=== PATIENT | female | born 1955 | race Caucasian/White ===

== ENCOUNTER 2017-12-13 04:56 | Day surgery (SDC) | payer OTHER ==
[~2017-12-13 04:56] MED LIST: ATACAND16 MG; CIPRO500 MG PO; COZAAR25 MG PO; DICLOFENAC POTA50 MG PO; ZOCOR5 MG PO
[2017-12-21] MEDS ORDERED: ZYNCOF 20-400120 ML PO (01:42)
[2017-12-21] MEDS ORDERED: ALBUTEROL2.5 MG/3 M IH (01:42)
== END 2017-12-13 11:05 | disposition home or self-care (01) ==
LOC: CIR.AMB 04:56
DX: N61.1 Abscess of the breast and nipple (principal)

== ENCOUNTER 2017-12-15 18:32 | Emergency (ER) | payer OTHER ==
[~2017-12-15] VITALS: Ht 167.6 cm; Wt 84.8 kg
[2017-12-16] MEDS ORDERED: LEVSIN/SL0.125 MG SL (07:07)
== END 2017-12-16 06:56 | disposition home or self-care (01) ==
LOC: ER 18:32
DX: K59.00 Constipation, unspecified (principal)

== ENCOUNTER → 2017-12-20 | Emergency (ER) | payer OTHER ==
[~2017-12-20] VITALS: Ht 167.6 cm; Wt 83.9 kg
[~2017-12-20] MED LIST changes: +ALBUTEROL2.5 MG/3 M IH; +LEVSIN/SL0.125 MG SL; +ZYNCOF 20-400120 ML PO
== END | disposition home or self-care (01) ==
LOC: ER 21:20
DX: J06.9 Acute upper respiratory infection, unspecified (principal)

== ENCOUNTER 2023-06-23 10:03 | Outpatient (CLI) | payer OTHER | END 2023-06-23 10:12 | disposition home or self-care (01) | LOC: MRI 10:03 | PROVIDERS: ATTEND Emergency Medicine | DX: M54.12 Radiculopathy, cervical region (principal); M62.838 Other muscle spasm | CPT/HCPCS: 72141 ==